=== PATIENT | female | born 1985 | race Hispanic/Latino ===

== ENCOUNTER 2018-06-03 08:36 | Emergency (ER) | payer MEDICAID ==
[2018-06-03 08:40] VITALS: BMI 23.3
[2018-06-03] MEDS ORDERED: Albuterol-Ipratrop 3 mg / 0.5 (3 ml) UD IH STA ×2 (09:05→10:19)
--- NOTE | 2018-06-03 09:17 | ED PDOC ---
Arrival/HPI - General Chief Complaint: Anxiety Time Seen by Provider: 06/03/18 08:49 Historian: Patient - History of Present Illness Narrative History of Present Illness (Text): 06/03/18 09:18 A 32 year old female, with a past medical history of asthma as a child, presents to the emergency department with a complaint of shortness of breath. Patient notes that her current symptoms feel similar to panic attacks she has experien radha in the past. The patient also notes that she had bronchitis this past week and was experiencing cough, chest congestion, and rhinorrhea. The patient was prescribed a Z- pack last week, which she finished 4 days ago. She notes that she expereinced fevers and a sore throat, which have resolved. Patient denies chills, headache, dizziness, chest pain, dyspnea on exertion, abdominal pain, nausea, vomiting, diarrhea, back pain, neck pain, urinary/bowel changes, or any other complaint. PMD: Dr. Gunn Time/Duration: Prior to Arrival Symptom Onset: Sudden Symptom Course: Unchanged Activities at Onset: Rest, Light Context: Home Past Medical History - Provider Review Nursing Documentation Reviewed: Yes - Infectious Disease Hx of Infectious Diseases: None - Tetanus Immunization Tetanus Immunization: Unknown - Past Medical History Past Medical History: No Previous - Pulmonary Hx Asthma: Yes (as a child) - Psychiatric Hx Depression: No Hx Emotional Abuse: No Hx Physical Abuse: No Hx Substance Use: No - Suicidal Assessment Feels Threatened In Home Enviroment: No Family/Social History - Physician Review Nursing Documentation Reviewed: Yes Family/Social History: No Known Family HX Smoking Status: Current Some Days Smoker Hx Alcohol Use: Yes Frequency of alcohol use: Socially Hx Substance Use: No Hx Substance Use Treatment: No Allergies/Home Meds Allergies/Adverse Reactions: Allergies No Known Allergies Allergy (Verified 07/28/13 13:41) Review of Systems - Physician Review All systems were reviewed & negative as marked: Yes - Review of Systems Constitutional: Fevers Respiratory: SOB Cardiovascular: absent: Chest Pain Gastrointestinal: absent: Abdominal Pain, Stool Changes, Diarrhea, Nausea, Vomiting Genitourinary Female: absent: Urine Output Changes Musculoskeletal: absent: Back Pain, Neck Pain Neurological: absent: Headache, Dizziness Psychiatric: Anxiety Physical Exam Vital Signs Reviewed: Yes Vital Signs Temp Pulse Resp BP Pulse Ox 06/03/18 08:37 97.5 F L 75 22 121/87 97 Temperature: Hypothermic Blood Pressure: Normal Pulse: Regular Respiratory Rate: Normal Appearance: Positive for: Well-Appearing, Non-Toxic, Comfortable Pain Distress: None Mental Status: Positive for: Alert and Oriented X 3 - Systems Exam Head: Present: Atraumatic, Normocephalic Pupils: Present: PERRL Extroacular Muscles: Present: EOMI Conjunctiva: Present: Normal Mouth: Present: Moist Mucous Membranes Neck: Present: Normal Range of Motion Respiratory/Chest: Present: Good Air Exchange, Wheezes (bilaterally. ). No: Respiratory Distress, Accessory Muscle Use Cardiovascular: Present: Regular Rate and Rhythm, Normal S1, S2. No: Murmurs Abdomen: No: Tenderness, Distention, Peritoneal Signs Back: Present: Normal Inspection Upper Extremity: Present: Normal Inspection. No: Cyanosis, Edema Lower Extremity: Present: Normal Inspection. No: Edema Neurological: Present: GCS=15, CN II-XII Intact, Speech Normal Skin: Present: Warm, Dry, Normal Color. No: Rashes Psychiatric: Present: Alert, Oriented x 3, Normal Insight, Normal Concentration Medical Decision Making ED Course and Treatment: 06/03/18 09:24 Impression: A 32 year old female presents to the emergency department with a complaint of anxiety and shortness of breath. Differential Diagnosis included but are not limited to: Anxiety and Bronchitis Plan: -- Chest X-ray -- Duoneb and Ativan -- Reassess and disposition Prior Visits: Notes and results from previous visits were reviewed. Progress Notes: Chest X-ray Dictator : Pino Carreno MD Report Date : 06/03/2018 10:29:36 IMPRESSION: No acute cardiopulmonary process seen. 06/03/18 11:34: On re-evaluation, patient feels better and is in no acute distress. Oxy sat is 95% on room air and she is denying shortness of breathe. Prednisone PO given. Rx Prednisone and Albuterol pump. I have discussed the results and plan with the patient, who expresses understanding. Patient in agreement with plan to be discharged home. Patient is stable for discharge. Patient was instructed to follow up with physician or return if symptoms worsen or new concerning symptoms arise. - RAD Interpretation Radiology Orders: 06/03/18 09:05 CHEST TWO VIEWS (PA/LAT) [RAD] Stat - Medication Orders Current Medication Orders: Discontinued Medications Albuterol/Ipratropium (Duoneb 3 Mg/0.5 Mg (3 Ml) Ud) 3 ml IH STAT STA Stop: 06/03/18 09:06 Lorazepam (Ativan) 1 mg PO ONCE ONE; Protocol Stop: 06/03/18 09:06 - Scribe Statement The provider has reviewed the documentation as recorded by the Biaibe Jazlyn Lynn Provider Scribe Attestation: All medical record entries made by the Scribe were at my direction and personally dictated by me. I have reviewed the chart and agree that the record accurately reflects my personal performance of the history, physical exam, medical decision making, and the department course for this patient. I have also personally directed, reviewed, and agree with the discharge instructions and disposition. Disposition/Present on Arrival - Present on Arrival Any Indicators Present on Arrival: No History of DVT/PE: No History of Uncontrolled Diabetes: No Urinary Catheter: No History of Decub. Ulcer: No History Surgical Site Infection Following: None - Disposition Have Diagnosis and Disposition been Completed?: Yes Diagnosis: Asthmatic bronchitis, Anxiety Disposition: HOME/ ROUTINE Disposition Time: 11:34 Patient Plan: Discharge Condition: IMPROVED Discharge Instructions (ExitCare): Asthma, Adult (DC), Anxiety, Adult (DC) Additional Instructions: LOVELY DIETRICH, thank you for letting us take care of you today. Your provider was Satnam Dodge DO and you were treated for Anxiety, Bronchitis. The emergency medical care you received today was directed at your acute symptoms. If you were prescribed any medication, please fill it and take as directed. It may take several days for your symptoms to resolve. Return to the Emergency Department if your symptoms worsen, do not improve, or if you have any other problems. Please contact your doctor or call one of the physicians/clinics you have been referred to that are listed on the Patient Visit Information form that is included in your discharge packet. Bring any paperwork you were given at discharge with you along with any medications you are taking to your follow up visit. Our treatment cannot replace ongoing medical care by a primary care provider outside of the emergency department. Thank you for allowing the [facility] team to be part of your care today. If you had an X-Ray or CT scan: A Radiologist will review the ED reading if any change in treatment is needed we will contact you. If you had a blood, urine, or wound culture: It will take several days for the results, if any change in treatment is needed we will contact you. If you had an STI test: It will take 48 hours for the results. Please call after 1 week if you have not heard back. Prescriptions: Albuterol HFA [Ventolin HFA 90 mcg/actuation (8 g)] 2 puff IH Q4 #1 puff Guaifenesin/Dextromethorphan [Robitussin Cough-Chest Dm Liq] 10 ml PO Q8 #1 bottle predniSONE [predniSONE Tab] 40 mg PO DAILY #8 tab Referrals: Bassem Gunn MD [Family Provider] - Follow up with primary Forms: [facility] (Welsh), WORK NOTE
[2018-06-03 10:31] VITALS: RESP 20
--- NOTE | 2018-06-03 10:33 | RAD ---
Date of service: 06/03/2018 HISTORY: cough r/o pna COMPARISON: None available. TECHNIQUE: Chest PA and lateral FINDINGS: LUNGS: No focal consolidation is seen. PLEURA: No pleural effusion is identified. CARDIOVASCULAR: Heart size is within normal limits. No atherosclerotic calcification present. OSSEOUS STRUCTURES: No significant abnormalities. VISUALIZED UPPER ABDOMEN: Unremarkable. OTHER FINDINGS: None. IMPRESSION: No acute cardiopulmonary process seen.
[2018-06-03 11:18] VITALS: TEMP 97.9
[2018-06-03 11:20] VITALS: BP 129/70; PULSE 96; O2SAT 95
--- NOTE | 2018-06-03 19:28 | CARD ---
APPROVED REPORT Date of service: 06/03/2018 EKG Measurement Heart [id number] <Conclusion> Normal sinus rhythm Rightward axis Borderline ECG
== END 2018-06-03 11:20 | disposition home or self-care (01) ==
LOC: ED 08:36
DX: J45.909 Unspecified asthma, uncomplicated (principal); F41.9 Anxiety disorder, unspecified; F17.210 Nicotine dependence, cigarettes, uncomplicated